=== PATIENT | female | born 1975 ===

== ENCOUNTER → 2021-02-26 | Outpatient (CLI) | payer SELFPAY ==
[2021-02-28 09:07] LABS: HIV SCREEN 4TH GENERATION WRFX Non Reactive (Non Reactive)
[2021-03-01 16:10] LABS: CHLAMYDIA BY NAA Negative (Negative); GONOCOCCUS BY NAA Negative (Negative); TRICH VAG BY NAA Negative (Negative)
== END | disposition home or self-care (01) ==
LOC: LAB SHORT 16:24
PROVIDERS: Physician Assistant Surgical
DX: N94.10 Unspecified dyspareunia (principal)
CPT/HCPCS: 86592; 87389; 87491; 87591; 87661